=== PATIENT | male | born 1995 | race American Indian/Alaskan Native ===

== ENCOUNTER 2020-09-22 19:42 | Emergency (ER) | payer SELFPAY ==
[2020-09-22] MEDS ORDERED: SODIUM CHLORIDE 0.9% 1000 ML 1,000 ML IV ONE (20:14)
[2020-09-22] MEDS ORDERED: ONDANSETRON 4 MG/2 ML INJ IV ONE (20:14)
[2020-09-22] MEDS ORDERED: MORPHINE 4 MG/1 ML INJ IV ONE (20:14)
[2020-09-22 20:35] LABS: Basophils % (Auto) 0.3 % (0.0-1.8); Eosinophils # (Auto) 0.4 K/mm3 (0.0-0.4); Eosinophils % (Auto) 2.7 % (0.0-4.3); Hemoglobin 14.9 gm/dl (11.8-15.2); Lymphocytes # (Auto) 2.5 K/mm3 (1.2-5.4); Lymphocytes % (Auto) 19.7 % (13.4-35.0); Monocytes # (Auto) 0.8 K/mm3 (0.0-0.8); Monocytes % (Auto) 6.6 % (0.0-7.3)
[2020-09-22 20:40] LABS: Hematocrit 44.4 % (35.5-45.6); Mean Corpuscular HGB Conc 34 % (32-34); Mean Corpuscular Volume 92 fl (84-94); Red Blood Count 4.85 M/mm3 (3.65-5.03)
[2020-09-22 20:41] LABS: Platelet Count 189 K/mm3 (140-440)
[2020-09-22 21:00] LABS: Alanine Aminotransferase 14 units/L (7-56); Albumin 4.8 g/dL (3.9-5); BUN/Creatinine Ratio 10; Blood Urea Nitrogen 8 mg/dL (9-20); Calcium 9.7 mg/dL (8.4-10.2); Hemolysis Index 5
--- NOTE | 2020-09-22 22:56 | Cat Scan Report ---
CT abdomen pelvis w con INDICATION / CLINICAL INFORMATION: Abdominal pain, N/V/D. TECHNIQUE: Axial CT imaging of abdomen and pelvis was obtained with IV contrast. Coronal and sagittal reformatte d imaging obtained and reviewed. All CT scans at this location are performed using CT dose reduction for ALARA by means of automated exposure control. COMPARISON: None available. FINDINGS: CT abdomen with IV contrast demonstrates normal appearance of the liver, spleen, pancreas, kidneys, a nd adrenal glands. Gallbladder is present and is unremarkable. No biliary dilatation. CT pelvis with contrast does not demonstrate any mass, free fluid, or focal inflammatory change. A no rmal appendix is present within the right lower quadrant. There are some fluid-filled small bowel loops which are not abnormally distended, present throughout the abdomen and pelvis. This could indicate mild enteritis. I do not see any CT evidence for active C rohn's disease at this time. The terminal ileum is unremarkable in appearance. Oral contrast is seen throughout the colon. Visualized lung bases are clear. No significant acute osseous abnormality. IMPRESSION: 1. Questionable mild enteritis. Please correlate with clinical symptoms and presentation. I do not se e any evidence for active Crohn's disease or mechanical bowel obstruction on today's exam. 2. No other significant abnormality. Signer Name: Adriana Baker MD Signed: 09/22/2020 10:51 PM Workstation Name: [id number]
[2020-09-22] MEDS ORDERED: ONDANSETRON 4 MG/2 ML INJ ONE (23:17)
[2020-09-22] MEDS ORDERED: HYDROmorphone 1 MG/1 ML INJ IV ONE (23:17)
[2020-09-22] MEDS ORDERED: SODIUM CHLORIDE 0.9% 1000 ML 1,000 ML ONE (23:17)
--- NOTE | 2020-09-22 23:31 | Emergency Department Report ---
ED Abdominal Pain HPI - General Chief Complaint: Abdominal Pain Stated Complaint: GALL BLADDER PAIN Time Seen by Provider: 09/22/20 23:02 Source: patient Mode of arrival: Wheelchair Limitations: No Limitations - History of Present Illness Initial Comments: 24-year-old male, history of Crohn's disease, presents to ED with right lower quadrant abdominal pain that started earlier today. Patient reports history of previous abdominal surgery for obstruction. He believes there may have been some removal of his intestine at the time. Today, patient reports nausea and vomiting. He denies any fever or diarrhea. Patient states this does not feel like his usual Crohn's flare. MD Complaint: abdominal pain -: This evening Location: RLQ Radiation: none Migration to: no migration Severity: severe Severity scale (0 -10): 10 Quality: stabbing, sharp Consistency: constant Improves With: nothing Worsens With: nothing Associated Symptoms: nausea, vomiting. denies: diarrhea, fever - Related Data Previous Rx's Medication Instructions Recorded Last Taken Type Dicyclomine [Bentyl] 20 mg PO QID PRN #20 tablet 09/23/20 Unknown Rx Ondansetron [Zofran Odt] 4 mg PO Q8HR PRN #20 tab.rapdis 09/23/20 Unknown Rx traMADoL [Ultram] 50 mg PO Q6HR PRN #7 tablet 09/23/20 Unknown Rx Allergies Allergy/AdvReac Type Severity Reaction Status Date / Time cephalexin [From Keflex] Allergy Rash Verified 09/22/20 20:16 ED Review of Systems ROS: Stated complaint: GALL BLADDER PAIN Other details as noted in HPI Comment: All other systems reviewed and negative Constitutional: denies: chills, fever Gastrointestinal: abdominal pain, nausea, vomiting ED Past Medical Hx - Past Medical History Previous Medical History?: Yes Additional medical history: ulcerative colitis. crohn's bowel obstruction - Surgical History Past Surgical History?: Yes Additional Surgical History: bowel obstruction - Social History Smoking Status: Current Every Day Smoker Substance Use Type: None - Medications Home Medications: Home Medications Medication Instructions Recorded Confirmed Last Taken Type Dicyclomine [Bentyl] 20 mg PO QID PRN #20 tablet 09/23/20 Unknown Rx Ondansetron [Zofran Odt] 4 mg PO Q8HR PRN #20 tab.rapdis 09/23/20 Unknown Rx traMADoL [Ultram] 50 mg PO Q6HR PRN #7 tablet 09/23/20 Unknown Rx ED Physical Exam - General Limitations: No Limitations General appearance: alert - Head Head exam: Present: atraumatic, normocephalic - Eye Eye exam: Present: normal appearance - ENT ENT exam: Present: mucous membranes moist - Neck Neck exam: Present: normal inspection - Respiratory Respiratory exam: Present: normal lung sounds bilaterally. Absent: respiratory distress - Cardiovascular Cardiovascular Exam: Present: normal rhythm, tachycardia - GI/Abdominal GI/Abdominal exam: Present: soft, tenderness (RLQ). Absent: distended - Extremities Exam Extremities exam: Present: normal inspection - Neurological Exam Neurological exam: Present: alert, oriented X3 - Psychiatric Psychiatric exam: Present: normal affect, normal mood - Skin Skin exam: Present: warm, dry, intact, normal color ED Course Vital Signs 09/22/20 09/22/20 09/22/20 20:14 23:20 23:45 Temperature 98.0 F 97.9 F Pulse Rate 125 H 89 Respiratory 22 18 18 Rate Blood Pressure 119/77 Blood Pressure 110/81 [Left] O2 Sat by Pulse 98 99 Oximetry 09/22/20 09/23/20 09/23/20 23:50 00:45 00:55 Temperature Pulse Rate Respiratory 18 18 18 Rate Blood Pressure Blood Pressure [Left] O2 Sat by Pulse Oximetry ED Medical Decision Making - Lab Data Result diagrams: 09/22/20 20:19 09/22/20 20:19 - Radiology Data Radiology results: report reviewed, image reviewed - Medical Decision Making 24-year-old male presents to ED with right lower quadrant pain. Patient has history of Crohn's disease. Labs show mild elevation in WBCs. CT scan is negat olivia for any acute findings. Possible enteritis present. Patient given IV fluids, Dilaudid, Zofran here in the ED and is feeling much better at this time. He will be discharged home. Outpatient follow-up advised with gastroenterology. Prescriptions given. Return precautions given. - Differential Diagnosis Bowel obstruction, Crohn's flare, appendicitis Critical care attestation.: If time is entered above; I have spent that time in minutes in the direct care of this critically ill patient, excluding procedure time. ED Disposition Clinical Impression: Acute abdominal pain Disposition: - TO HOME OR SELFCARE Is pt being admited?: No Condition: Stable Instructions: Abdominal Pain, Adult, [id number] Prescriptions: Dicyclomine [Bentyl] 20 mg PO QID PRN #20 tablet PRN Reason: abdominal pain traMADoL [Ultram] 50 mg PO Q6HR PRN #7 tablet PRN Reason: Pain Ondansetron [Zofran Odt] 4 mg PO Q8HR PRN #20 tab.rapdis PRN Reason: Vomiting Referrals: PRIMARY CARE, [Primary Care Provider] - 3-5 Days [facility] [Provider Group] - 3-5 Days [facility] [Provider Group] - 3-5 Days Time of Disposition: 00:36
[2020-09-22 23:46] VITALS: BP 110/81
[2020-09-23 00:08] LABS: Bilirubin,Urine NEG (Negative); Blood,Urine NEG (Negative); Color,Urine Straw (Yellow); Mucus,Urine FEW /HPF; Protein,Urine <15 mg/dL mg/dL (Negative); Urobilinogen,Urine < 2.0 mg/dL (<2.0); WBC,Urine < 1.0 /HPF (0.0-6.0)
[2020-09-23] MEDS ORDERED: methylPREDNISolone Sod Succinate 125 MG/2 ML INJ IV ONE (00:19)
[2020-09-23] MEDS ORDERED: HYDROmorphone 1 MG/1 ML INJ IV ONE (00:19)
== END 2020-09-23 00:55 | disposition home or self-care (01) ==
LOC: ED 19:42
DX: R10.31 Right lower quadrant pain (principal); I10 Essential (primary) hypertension; F17.200 Nicotine dependence, unspecified, uncomplicated; Z88.8 Allergy status to other drugs, medicaments and biological substances; Z79.899 Other long term (current) drug therapy; Z98.890 Other specified postprocedural states
CPT/HCPCS: 36415; 74177; 80053; 81001; 83690; 85025; 96361; 96374; 96375; 96376; 99284; J1170; J2405; J2930; J7030; Q9967

== ENCOUNTER 2020-09-26 11:59 | Emergency (ER) | payer SELFPAY ==
[2020-09-26 12:07] VITALS: BP 106/75
[2020-09-26] MEDS ORDERED: ONDANSETRON 4 MG ODT TAB PO ONE (12:31)
--- NOTE | 2020-09-26 12:31 | Event Note ---
ED Screening Note Date of service: 10/03/20 Time: 12:30 ED Screening Note: 24-year-old male presents to the emergency room for extreme abdominal pain. Patient was seen here on 09/22/2020 for the same complaints. Patient has not been able to follow-up secondary to no insurance or money. Patient reports a history of Crohn's disease and ulcerative colitis. Patient had a history of abdominal obstruction. Patient states is not able to eat and starting to feel weak. Patient reports this has nausea no vomiting. This initial assessment/diagnostic orders/clinical plan/treatment(s) is/are subject to change based on patients health status, clinical progression and re- assessment by fellow clinical providers in the ED. Further treatment and workup at subsequent clinical providers discretion. Patient/guardian urged not to elope from the ED as their condition may be serious if not clinically assessed and managed. Initial orders include:
[2020-09-26] MEDS ORDERED: SODIUM CHLORIDE 0.9% 1000 ML 1,000 ML IV ONE (12:37)
[2020-09-26 12:57] LABS: Basophils % (Auto) 0.5 % (0.0-1.8); Eosinophils # (Auto) 0.1 K/mm3 (0.0-0.4); Eosinophils % (Auto) 2.6 % (0.0-4.3); Hematocrit 46.4 % (35.5-45.6); Hemoglobin 15.9 gm/dl (11.8-15.2); Lymphocytes # (Auto) 1.5 K/mm3 (1.2-5.4); Lymphocytes % (Auto) 29.6 % (13.4-35.0); Mean Corpuscular HGB Conc 34 % (32-34); Mean Corpuscular Volume 91 fl (84-94); Monocytes # (Auto) 0.6 K/mm3 (0.0-0.8); Monocytes % (Auto) 11.2 % (0.0-7.3); Platelet Count 162 K/mm3 (140-440); Red Blood Count 5.13 M/mm3 (3.65-5.03); Red Cell Distribution Width 12.8 % (13.2-15.2)
[2020-09-26 13:24] LABS: Alanine Aminotransferase 13 units/L (7-56); Albumin 4.7 g/dL (3.9-5); BUN/Creatinine Ratio 10; Blood Urea Nitrogen 8 mg/dL (9-20); Calcium 9.6 mg/dL (8.4-10.2); Hemolysis Index 14
== END 2020-09-26 16:00 | disposition left against medical advice (07) ==
LOC: ED 11:59
DX: R10.9 Unspecified abdominal pain (principal); Z53.21 Procedure and treatment not carried out due to patient leaving prior to being seen by health care provider
CPT/HCPCS: 36415; 80053; 83690; 85025; Q0162